=== PATIENT | female | born 2000 | race Caucasian/White ===

== ENCOUNTER 2023-10-24 10:29 | Outpatient (CLI) | payer MEDICAID, SELFPAY ==
[2023-10-24 16:44] LABS: Basophils # 0.1 K/mm3 (0-0.2); Basophils % 0.8 % (0.1-2.0); Eosinophils # 0.1 K/mm3 (0.0-0.4); Eosinophils % 1.8 % (0.1-12.0); Hematocrit 44.2 % (37.0-47.0); Hemoglobin 14.2 g/dL (12.2-16.2); Lymphocytes # 2.2 K/mm3 (0.7-4.5); Lymphocytes % 31.7 % (10-50); Mean Corpuscular Hemoglobin 27.5 pg (27.0-31.2); Mean Corpuscular Volume 85.8 fl (81-99); Mean Platelet Volume 8.7 fl (7.4-10.4); Monocytes # 0.4 K/mm3 (0.1-1.0); Monocytes % 5.1 % (1.7-9.3); Neutrophils # 4.3 K/mm3 (1.8-7.8); Neutrophils % 60.6 % (37.0-80.0); Platelet Count 249 K/mm3 (142-424); Red Blood Count 5.16 M/mm3 (4.20-5.40); Red Cell Distribution Width 13.8 % (11.5-17.5); White Blood Count 7.1 K/mm3 (4.8-10.8)
[2023-10-24 16:54] LABS: Alanine Aminotransferase 20 U/L (12-78); Albumin Level 4.3 g/dl (3.5-5.0); Albumin/Globulin Ratio 1.5 (1.1-1.8); Alkaline Phosphatase 60 U/L (38-126); Anion Gap 15.9 mEq/L (5-15); Aspartate Amino Transferase 22 U/L (14-36); Bilirubin,Total 0.2 mg/dl (0.2-1.3); Blood Urea Nitrogen 18 mg/dl (7-17); Calcium 9.3 mg/dl (8.4-10.2); Carbon Dioxide 27 mmol/L (22.0-30.0); Chloride 102 mmol/L (98-107); Chol/HDL Ratio 5.7 (1-3.5); Cholesterol 193 mg/dl (140-200); Estimated Glomerular Filt Rate 156 ml/min (>60); GFR (African American) 188 ML/MIN (>60); Globulin 2.9 g/dL (1.3-3.2); Glucose 231 mg/dl (74-100); HDL Cholesterol 34 mg/dl (40-60); Potassium 4.9 mmoL/L (3.5-5.1); Sodium 140 mmol/L (136-145); Total Protein,Serum 7.2 g/dl (6.3-8.2); Triglycerides 86 mg/dl (30-150); VLDL Cholesterol 17 mg/dL (0-40)
[2023-10-24 17:05] LABS: Direct LDL Cholesterol 131.96 mg/dL (100-129)
[2023-10-24 17:09] LABS: Free Thyroxine Index 2.3 ug/dL (5.93-13.13); T4 (Thyroxine) 7.1 ug/dl (5.53-11.0); Triiodothryronine (T3) Uptake 32 % (23.5-40.5)
[2023-10-24 17:22] LABS: Hemoglobin A1C 8.2 % (4.0-6.0)
[2023-10-24 17:23] LABS: Thyroid Stimulating Hormone 0.94 uIU/mL (0.465-4.68)
== END 2023-10-24 23:59 | disposition home or self-care (01) ==
LOC: LAB.DROPOF 10-26 10:30
PROVIDERS: PCP Nurse Practitioner Family; Visit Provider Nurse Practitioner Family
DX: E11.9 Type 2 diabetes mellitus without complications (principal); Z79.4 Long term (current) use of insulin
CPT/HCPCS: 80053; 80061; 83036; 84436; 84443; 84479; 85025

== ENCOUNTER 2023-11-11 14:40 | Outpatient (CLI) | payer MEDICAID, SELFPAY ==
--- NOTE | 2023-11-11 14:41 | XR_ITS ---
FINAL REPORT CLINICAL HISTORY: cyst FINDINGS: LEFT KNEE 3 views of the left knee were obtained. There is no acute fracture or dislocation. Visualized joint spaces are normally aligned. Soft tissues are unremarkable. IMPRESSION: No acute bony abnormality. Reviewed, Interpreted and Dictated by Arthur Gibbs MD Transcribed by Bernie Del Real Authenticated and [facility]
--- NOTE | 2023-11-11 14:41 | US_ITS ---
FINAL REPORT TECHNIQUE: Limited sonographic imaging was obtained of the left knee. CLINICAL HISTORY: skin cyst FINDINGS: There is a hypoechoic lesion in the prepatellar region measuring 14 x 12 x 6 mm likely related to complex cyst or hematoma. IMPRESSION: Nonspecific, subcutaneous nodule in the prepatellar region. Reviewed, Interpreted and Dictated by Arthur Gibbs MD Transcribed by Bernie Del Real Authenticated and [facility]
== END 2023-11-11 23:59 | disposition home or self-care (01) ==
LOC: RAD 14:41
PROVIDERS: PCP Surgery; Visit Provider Surgery
DX: L72.9 Follicular cyst of the skin and subcutaneous tissue, unspecified (principal)
CPT/HCPCS: 73562; 76882

== ENCOUNTER 2023-12-01 08:22 | Outpatient (CLI) | payer MEDICAID, SELFPAY ==
--- NOTE | 2023-12-01 08:32 | MR_ITS ---
FINAL REPORT CLINICAL HISTORY: LT Knee Pain. patellar cyst. FINDINGS: Multiplanar MR imaging of the left knee was performed without contrast. There is a lobular cyst adjacent to the anterior horn and body of the lateral meniscus measuring 3.4 x 2.1 x 1.0 cm, may represent a meniscal cyst, ganglion cyst, or parameniscal cyst. No definitive lateral meniscal tear is identified. The medial meniscus is intact. The anterior and posterior cruciate ligaments are intact. The medial collateral ligament and lateral ligamentous complex are intact. There is mild distal patellar tendinitis. There is no evidence of fracture. No focal abnormality is identified of the articular cartilage. Small joint effusion is seen. The musculature is intact. IMPRESSION: Lobular cyst adjacent to the lateral meniscus as detailed above. Mild distal patellar tendinitis. Reviewed, Interpreted and Dictated by Ramesh Jon III, MD Transcribed by Jordana Toribio Authenticated and [facility]
== END 2023-12-01 23:59 | disposition home or self-care (01) ==
LOC: RAD 08:23
PROVIDERS: PCP Nurse Practitioner Family; Visit Provider Orthopaedic Surgery
DX: M25.562 Pain in left knee (principal); L72.9 Follicular cyst of the skin and subcutaneous tissue, unspecified; M76.52 Patellar tendinitis, left knee
CPT/HCPCS: 73721

== ENCOUNTER 2023-12-08 11:58 | Outpatient (CLI) | payer MEDICAID, SELFPAY ==
[2023-12-08 12:51] LABS: Basophils # 0.1 K/mm3 (0-0.2); Basophils % 1.3 % (0.1-2.0); Eosinophils # 0.1 K/mm3 (0.0-0.4); Eosinophils % 1.2 % (0.1-12.0); Hemoglobin 14.6 g/dL (12.2-16.2); Lymphocytes # 2.4 K/mm3 (0.7-4.5); Lymphocytes % 30.9 % (10-50); Mean Corpuscular Hemoglobin 28.1 pg (27.0-31.2); Mean Corpuscular Volume 82.5 fl (81-99); Mean Platelet Volume 7.6 fl (7.4-10.4); Monocytes # 0.4 K/mm3 (0.1-1.0); Monocytes % 4.8 % (1.7-9.3); Neutrophils # 4.8 K/mm3 (1.8-7.8); Neutrophils % 61.9 % (37.0-80.0); Platelet Count 202 K/mm3 (142-424); Red Blood Count 5.21 M/mm3 (4.20-5.40); White Blood Count 7.8 K/mm3 (4.8-10.8)
[2023-12-08 14:27] LABS: Alanine Aminotransferase 23 U/L (12-78); Albumin Level 4.9 g/dl (3.5-5.0); Albumin/Globulin Ratio 1.8 (1.1-1.8); Alkaline Phosphatase 60 U/L (38-126); Anion Gap 16.1 mEq/L (5-15); Aspartate Amino Transferase 24 U/L (14-36); Bilirubin,Total 0.4 mg/dl (0.2-1.3); Blood Urea Nitrogen 15 mg/dl (7-17); Calcium 9.8 mg/dl (8.4-10.2); Carbon Dioxide 25 mmol/L (22.0-30.0); Chloride 103 mmol/L (98-107); Estimated Glomerular Filt Rate 156 ml/min (>60); GFR (African American) 188 ML/MIN (>60); Globulin 2.7 g/dL (1.3-3.2); Glucose 190 mg/dl (74-100); Potassium 4.1 mmoL/L (3.5-5.1); Sodium 140 mmol/L (136-145); Total Protein,Serum 7.6 g/dl (6.3-8.2)
== END 2023-12-08 23:59 | disposition home or self-care (01) ==
LOC: LAB 11:59
PROVIDERS: PCP Nurse Practitioner Family; Visit Provider Surgery
DX: L72.9 Follicular cyst of the skin and subcutaneous tissue, unspecified (principal)
CPT/HCPCS: 36415; 80053; 85025

== ENCOUNTER 2023-12-14 06:02 | Day surgery (SDC) | payer MEDICAID, SELFPAY ==
[2023-12-12 13:19] VITALS: BMI 36.6
[2023-12-14] VITALS (10 sets, daily range): BP systolic 112–135; BP diastolic 54–82; PULSE 68–83; RESP 16–18; TEMP 36.1–36.2; O2SAT 95–100
[2023-12-14] MEDS: LACTATED RINGERS 1000ML 1,000 ML 100 ML IV (06:30)
[2023-12-14 07:17] LABS: POC Glucose,Bedside 150 (70-110)
[2023-12-14] MEDS: CEFAZOLIN SODIUM 2 GM in 0.9 % SODIUM CHLORIDE 100 ML IV (07:36)
[2023-12-14] MEDS: BUPIVACAINE 0.25% 30ML VIAL 75 MG (08:05)
[2023-12-14] MEDS: RINGERS SOLUTION,LACTATED 6,000 ML 25 ML IR (08:05)
--- NOTE | 2023-12-14 08:29 | P.OP_ITS ---
Date of procedure: 12/14/23 Pre-op Diagnosis:: Left knee soft tissue mass anterior knee Left knee parameniscal cyst Post-op Diagnosis:: Same Procedure performed:: 1. Left knee arthroscopy with synovectomy and debridement lateral parameniscal cyst 2. Left knee open excision soft tissue mass anterior knee Surgeon:: Krish Otero DO SENIOR [employer]YROLL SPECIALIST:: Keli Suarez Anesthesia: GETA Estimated blood loss (mL): 0 Operative findings:: Left knee parameniscal cyst and synovitis without evidence of meniscal tear Operative note:: Patient identified preoperatively. Left knee marked with yes and my initials. Transferred operative suite. Placed upon the operating bed. General anesthesia administered airway secured. Left knee was then prepped and draped within the knee rubio. Once prepped and draped final operative timeout performed to identify proper patient procedure and extremity. Everyone involved the case agreed. There was no counter indications to beginning. Did receive preoperative antibiotics. Marking pen was used to sandra the bony landmarks of the in the soft tissue mass of the anterior knee superficial to the patella tendon Esmarch was used to exsanguinate the extremity pneumatic tourniquet inflated to 300 mmHg. Skin knife was used incise standard anterior lateral portal and the blunt with trocar was placed in the patellofemoral joint exchange with a camera. I swept directly into the medial joint line where the anterior medial portal was made with the help of an 18-gauge spinal needle. Once this was established a probe was placed in the medial joint line the medial meniscus was intact medial cartilage is intact Tensions brought to the intercondylar notch there was some mild synovitis in the anterior compartment ACL was seen and intact. Attention is then brought to the lateral joint line within the lateral joint line probe was then placed there is synovitis also present in the lateral joint line. A probe was then placed in the undersurface of the lateral meniscus there is no alexandr tear of the lateral meniscus evident. Next probed this extensively. The sucker shaver was placed in the lateral joint line and placed on suction and the meniscal cyst was ruptured with return of fluid which was suctioned with the sucker shaver out of the knee. There is also significant synovitis present in the lateral joint line which was also debrided with the sucker shaver. Attention is brought to the medial lateral gutters no further pathology was seen there attention was brought to the patellofemoral joint patella tracked midline the trochlea no pathology seen. Cameras removed the joint was drained. Attention was then brought to the anterior aspect of the knee where there is a palpable soft tissue mass superficial to the patella. 15 blade was used to incise through skin careful dissection was taken down with scissors and retractors placed and soft tissue mass excised from the knee. This tissue passed off for pathology. Irrigation wound performed. Deep layers closed with Vicryl skin closed with nylon stitches sterile dressing placed from toe to thigh patient waken anesthesia taken recovery stable condition. Condition: stable Disposition: PACU Complications:: None apparent
[2023-12-14 08:36] LABS: Urine Pregnancy, HCG Qual. Negative (Negative)
--- NOTE | 2023-12-14 08:44 | EXP.ANES.I ---
[facility] Anesthesia Record Part I Anesthesia Record I Intake, IV Amount: 750 Hydration: Adequate Estimated blood loss (mL): 10 Urine output (mL): 0 Blood Products used (#): none Blood Pressure: 114/62 SaO2: 95 Pulse Rate: 70 Airway Patency: Patent Respiratory Rate: 16 Temperature: 96.9 F Patient is:: Awake, Drowsy, Oral/Nasal airway (9.0 oral airway) and Stable Stable to PACU at:: 08:45
[2023-12-14 08:50] LABS: POC Glucose,Bedside 150 (70-110)
--- NOTE | 2023-12-14 17:30 | EXP.ANES.II ---
[facility] Anesthesia Record Part II Anesthesia Record Part II Discharge Time: 09:10 Destination: Surgical Day Care (OP Surgery) PACU nurse assessment reviewed?: Yes Patient Condition:: Good Anesthesia Complications:: None Swallowing reflex intact?: Yes Airway Patency: Patent Cyanosis?: No Blood Pressure: 127/75 SaO2: 96 Respiratory Rate: 16 Pulse Rate: 83 Temperature: 96.9 F Mental Status: Alert & Oriented Pain level:: 0 Nausea and/or vomitting:: None Intake, IV Amount: 750 Hydration: Adequate
== END 2023-12-14 09:41 | disposition home or self-care (01) ==
PROVIDERS: PCP Nurse Practitioner Family; Visit Provider Orthopaedic Surgery
PROC: (CPT 29870; principal; 2023-12-14 07:30)
DX: M23.001 Cystic meniscus, unspecified lateral meniscus, left knee (principal); D23.72 Other benign neoplasm of skin of left lower limb, including hip
CPT/HCPCS: 11402; 29875; 81025; 82962; 96374; J0690; J1885; J2250; J2405; J3010; J7120

== ENCOUNTER 2024-03-30 15:10 | Outpatient (CLI) | payer MEDICAID, SELFPAY ==
[2024-03-30 16:17] LABS: Basophils # 0.1 K/mm3 (0-0.2); Basophils % 0.8 % (0.1-2.0); Eosinophils # 0.1 K/mm3 (0.0-0.4); Hematocrit 42.8 % (37.0-47.0); Lymphocytes # 1.3 K/mm3 (0.7-4.5); Lymphocytes % 17.8 % (10-50); Mean Corpuscular Hemoglobin 28.9 pg (27.0-31.2); Mean Corpuscular Volume 82.4 fl (81-99); Mean Platelet Volume 7.7 fl (7.4-10.4); Monocytes # 0.4 K/mm3 (0.1-1.0); Monocytes % 4.8 % (1.7-9.3); Neutrophils # 5.5 K/mm3 (1.8-7.8); Neutrophils % 75.5 % (37.0-80.0); Platelet Count 205 K/mm3 (142-424); White Blood Count 7.3 K/mm3 (4.8-10.8)
[2024-03-30 16:45] LABS: Albumin Level 4.7 g/dl (3.5-5.0); Chloride 104 mmol/L (98-107); Sodium 138 mmol/L (136-145)
[2024-03-30 16:46] LABS: Potassium 4.3 mmoL/L (3.5-5.1)
[2024-03-30 16:48] LABS: Alanine Aminotransferase 655 U/L (12-78); Albumin/Globulin Ratio 1.6 (1.1-1.8); Alkaline Phosphatase 240 U/L (38-126); Amylase 49 U/L (30-110); Anion Gap 13.3 mEq/L (5-15); Aspartate Amino Transferase 249 U/L (14-36); Bilirubin,Total 3.5 mg/dl (0.2-1.3); Blood Urea Nitrogen 9 mg/dl (7-17); Carbon Dioxide 25 mmol/L (22.0-30.0); Estimated Glomerular Filt Rate 156 ml/min (>60); GFR (African American) 188 ML/MIN (>60); Globulin 2.9 g/dL (1.3-3.2); Total Protein,Serum 7.6 g/dl (6.3-8.2)
[2024-03-30 16:49] LABS: Calcium 9.3 mg/dl (8.4-10.2); Chol/HDL Ratio 4.2 (1-3.5); Cholesterol 215 mg/dl (140-200); Glucose 267 mg/dl (74-100); HDL Cholesterol 51 mg/dl (40-60); Triglycerides 85 mg/dl (30-150); VLDL Cholesterol 17 mg/dL (0-40)
[2024-03-30 17:00] LABS: Direct LDL Cholesterol 131.65 mg/dL (100-129)
[2024-03-30 17:11] LABS: HIV (1&2) Antibody Rapid NONREACTIVE (NONREACTIVE)
[2024-03-31 05:13] LABS: HCV Ab Non Reactive (Non Reactive)
== END 2024-03-30 23:59 | disposition home or self-care (01) ==
LOC: LAB.DROPOF 03-31 09:06
PROVIDERS: PCP Family Medicine; Visit Provider Family Medicine
DX: R10.9 Unspecified abdominal pain (principal); Z11.4 Encounter for screening for human immunodeficiency virus [HIV]; Z11.59 Encounter for screening for other viral diseases; E11.9 Type 2 diabetes mellitus without complications
CPT/HCPCS: 80053; 80061; 82150; 85025; 86803; 87389

== ENCOUNTER 2024-04-05 08:24 | Outpatient (CLI) | payer MEDICAID, SELFPAY ==
--- NOTE | 2024-04-05 08:24 | US_ITS ---
FINAL REPORT CLINICAL HISTORY: EPIGASTRIC PAIN-- COMPARISON: None FINDINGS: Sonographic images of the abdomen were obtained. The liver has an unremarkable appearance with normal echogenicity. There is a large shadowing area in the gallbladder fossa which likely represents a stone filled gallbladder. There is no evidence of biliary ductal dilatation. The common hepatic duct measures 4 mm, which is within normal limits. The pancreas is partially obscured. The spleen size is normal. The right kidney measures 10.3 cm in length. The left kidney measures 10.6 cm in length. There is normal renal echogenicity. There is no evidence of hydronephrosis. The aorta has an unremarkable appearance. Limited images of the inferior vena cava are unremarkable. IMPRESSION: Probable stone filled gallbladder. Reviewed, Interpreted and Dictated by Ramesh Jon III, MD Transcribed by Little Villanueva Authenticated and . [facility]
== END 2024-04-05 23:59 | disposition home or self-care (01) ==
LOC: RAD 08:24
PROVIDERS: PCP Family Medicine; Visit Provider Family Medicine
DX: R10.9 Unspecified abdominal pain (principal)
CPT/HCPCS: 76700

== ENCOUNTER 2024-04-18 10:08 | Outpatient (CLI) | payer MEDICAID, SELFPAY ==
[2024-04-18 11:24] LABS: Urine Pregnancy, HCG Qual. Negative (Negative)
[2024-04-18 11:39] LABS: Albumin Level 4.5 g/dl (3.5-5.0)
[2024-04-18 11:42] LABS: Alanine Aminotransferase 51 U/L (12-78); Aspartate Amino Transferase 27 U/L (14-36); Bilirubin,Unconjugated 0.2 mg/dL (0.0-1.1); Total Protein,Serum 6.7 g/dl (6.3-8.2)
[2024-04-18 11:43] LABS: Alkaline Phosphatase 75 U/L (38-126); Bilirubin,Direct 0.2 mg/dl (0.0-0.4); Bilirubin,Indirect 0.1 mg/dL (0.0-0.9); Bilirubin,Total 0.3 mg/dl (0.2-1.3)
== END 2024-04-18 23:59 | disposition home or self-care (01) ==
PROVIDERS: PCP Nurse Practitioner Family; Visit Provider Surgery
DX: K82.8 Other specified diseases of gallbladder (principal)
CPT/HCPCS: 36415; 80076; 81025

== ENCOUNTER 2024-04-26 06:03 | Day surgery (SDC) | payer MEDICAID, SELFPAY ==
[2024-04-24 12:52] VITALS: BMI 36.6
[2024-04-26] VITALS (11 sets, daily range): BP systolic 119–146; BP diastolic 67–92; PULSE 83–103; RESP 16–26; TEMP 36.3–43; O2SAT 97–99
[2024-04-26] MEDS: 0.9 % SODIUM CHLORIDE 1000ML 1,000 ML 25 ML IV (06:22)
[2024-04-26 06:33] LABS: Urine Pregnancy, HCG Qual. Negative (Negative)
[2024-04-26 06:46] LABS: POC Glucose,Bedside 224 (70-110)
--- NOTE | 2024-04-26 06:49 | P.PNANES_ITS ---
[facility] Disclaimer: The information contained in this section may have been updated after the patient was seen, as this information can be updated by other users. Medical History No significant family history Skin cyst Left knee Diabetes mellitus Surgical History History of dermoid cyst excision Family History Other Family history of cancer Family history of heart disease Family history of hypertension Social History (Updated 04/26/24 @ 06:29 by Grace Regan RN) Smoking Status: Current every day smoker second hand exposure: Yes alcohol intake: never substance use type: marijuana current occupational status: employed Travel in the last 8 weeks: None household members: significant other and children housing: apartment marital status: single [facility] Anesthesia Checklist Patient Identification Patient Identification: Arm Band and Family Structural Data Admitted From: Home Planned Operative Procedure/s: Lap Raegan Consent for Planned Operative Procedure(s) Verified: Yes NPO Status Verified Time NPO: 00:00 Additional verifications Patient : No Anesthesia Reactions: No Hx Blood Transfusions: No Blood Transfusion Reaction: No Cephalosporin Allergy: No Previous Colonoscopy: No Airway Assessment Mallampati Score:: Class III C-Spine Mobility Assessed: Yes TMJ Mobility Assessed: Yes Dentition: Good Dentition Neurological Assessment Level of Consciousness: Awake, Alert, Appropriate and Follows Commands Hx Seizures: No Numbness or tingling in extremities: No Anesthesia Plan Anesthesia Risk discussed: Yes ASA Class: II Anesthesia Type: General Preoperative Comments Pre-Operative Comments: NIDDM. Smokes MJ.
[2024-04-26 07:02] LABS: Albumin Level 4.2 g/dl (3.5-5.0)
[2024-04-26 07:05] LABS: Alanine Aminotransferase 74 U/L (12-78); Alkaline Phosphatase 96 U/L (38-126); Aspartate Amino Transferase 52 U/L (14-36); Bilirubin,Direct 0.3 mg/dl (0.0-0.4); Bilirubin,Total 0.3 mg/dl (0.2-1.3); Total Protein,Serum 6.5 g/dl (6.3-8.2)
[2024-04-26] MEDS: CEFAZOLIN SODIUM 2 GM in 0.9 % SODIUM CHLORIDE 100 ML IV (07:05)
[2024-04-26] MEDS: LIDOCAINE 1% 20ML MDV 20 ML (07:30)
--- NOTE | 2024-04-26 08:10 | P.OP_ITS ---
Date of procedure: 04/26/24 Pre-op Diagnosis:: Symptomatic cholelithiasis Abnormal liver function studies (resolved) Post-op Diagnosis:: Same Procedure performed:: Laparoscopic cholecystectomy Surgeon:: Michael Kingsley MD ELECTRICAL MAINTENANCE WORKER:: Giovani Christensen Anesthesia: GETA Estimated blood loss (mL): 15 Operative findings:: Infundibular thickening/soft tissue stranding Operative note:: After informed consent was obtained, the patient was taken to the operating room and placed in the supine position. General anesthesia was induced and the abdomen was prepped and draped in a sterile fashion. After infiltration with local anesthetic an infraumbilical incision was made. A Veress needle was placed in position. The abdomen was insufflated. A 5 mm optical trocar was placed in position. Under direct visualization, a 12 mm trocar was placed in the subxiphoid position and 2 additional 5 mm trocars were placed in the right upper quadrant. The gallbladder was elevated up and over the liver margin. The tissue around the cystic duct was carefully dissected. 3 clips were placed proximally and the duct was transected with harmonic emilee. Harmonic emilee were then utilized to dissect the gallbladder away from the liver margin with careful attention to the control of the cystic artery. The gallbladder was placed in a retrieval bag and removed through the subxiphoid trocar site. The right upper quadrant was thoroughly irrigated. No active bleeding or bile leak was noted. Fascia at the subxiphoid trocar site was reapproximated utilizing the NeoClose device. The remaining trocars were removed. All wounds were i rrigated and skin was closed with 4-0 Monocryl in a subcuticular fashion. Steri-Strips were applied. The patient's anesthetic agents were reversed and extubation was completed prior to transfer to recovery in stable condition. Condition: stable Disposition: PACU Specimens:: Gallbladder and contents Complications:: No immediate
[2024-04-26] MEDS: HYDROMORPHONE 2MG/ML SYRINGE 0.5 MG IV ×4 (08:22→08:37)
[2024-04-26 08:27] LABS: POC Glucose,Bedside 219 (70-110)
--- NOTE | 2024-04-26 08:28 | P.PNANES_ITS ---
[facility] Anesthesia Record Part I Anesthesia Record I Intake, IV Amount: 850 Hydration: Adequate Estimated blood loss (mL): 15 Urine output (mL): 0 Blood Products used (#): none Blood Pressure: 146/92 SaO2: 98 Pulse Rate: 103 Airway Patency: Patent Respiratory Rate: 26 Temperature: 97.3 F Patient is:: Drowsy and Stable Stable to PACU at:: 08:17
--- NOTE | 2024-04-26 12:58 | P.PNANES_ITS ---
[facility] Anesthesia Record Part II Anesthesia Record Part II Discharge Time: 08:47 Destination: Surgical Day Care (OP Surgery) PACU nurse assessment reviewed?: Yes Patient Condition:: Good Anesthesia Complications:: None Swallowing reflex intact?: Yes Airway Patency: Patent Cyanosis?: No Blood Pressure: 119/72 SaO2: 98 Respiratory Rate: 20 Pulse Rate: 85 Temperature: 97.5 F Mental Status: Alert & Oriented Pain level:: 2 Nausea and/or vomitting:: None Intake, IV Amount: 0 Hydration: Adequate
== END 2024-04-26 09:17 | disposition home or self-care (01) ==
PROVIDERS: PCP Nurse Practitioner Family; Visit Provider Surgery
PROC: 0FT44ZZ Resection of Gallbladder, Percutaneous Endoscopic Approach (ICD-10-PCS; CPT 47562; principal; 2024-04-26 07:30)
DX: K80.20 Calculus of gallbladder without cholecystitis without obstruction (principal); R79.89 Other specified abnormal findings of blood chemistry
CPT/HCPCS: 47562; 36415; 80076; 81025; 82962; 96374; J3490; J0690; J1100; J1171; J2250; J2405; J3010; J7030

== ENCOUNTER 2024-08-21 08:03 | Emergency (ER) | payer MEDICAID, SELFPAY ==
[2024-08-21 08:13] LABS: Microscopic, Urine URINE MICROSCOPIC (MICROSCOPIC)
[2024-08-21 08:15] VITALS: BP 149/88; PULSE 86; RESP 18; TEMP 36.7; O2SAT 100; BMI 38.2
[2024-08-21 08:16] LABS: Appearance,Urine CLEAR (Clear); Bilirubin,Urine Negative (Negative); Blood, Urine Negative (Negative); Color,Urine YELLOW (Yellow); Glucose,Urine (UA) 3+ (Negative); Ketones,Urine Negative (Negative); Leukocyte Esterase,Urine Negative (Negative); Nitrate,Urine Negative (Negative); Protein,Urine Negative (Negative); Specific Gravity, Urine 1.015 (1.005-1.030); Urobilinogen,Urine 0.2 EU/dl (0.2)
--- NOTE | 2024-08-21 08:20 | PC.NURSE ---
dr taylor at bedside
[2024-08-21 08:25] LABS: Basophils # 0.1 K/mm3 (0-0.2); Basophils % 0.7 % (0.1-2.0); Eosinophils # 0.1 K/mm3 (0.0-0.4); Eosinophils % 1.5 % (0.1-12.0); Hematocrit 44.5 % (37.0-47.0); Lymphocytes # 1.9 K/mm3 (0.7-4.5); Lymphocytes % 26.1 % (10-50); Mean Corpuscular HGB Conc 33.7 g/dL (31.8-35.4); Mean Corpuscular Hemoglobin 27.9 pg (27.0-31.2); Mean Corpuscular Volume 82.9 fl (81-99); Mean Platelet Volume 11.1 fl (7.4-10.4); Monocytes # 0.4 K/mm3 (0.1-1.0); Monocytes % 5.1 % (1.7-9.3); Neutrophils # 4.8 K/mm3 (1.8-7.8); Neutrophils % 66.5 % (37.0-80.0); Platelet Count 164 K/mm3 (142-424); Red Blood Count 5.37 M/mm3 (4.20-5.40); Red Cell Distribution Width 12.5 % (11.5-17.5); White Blood Count 7.2 K/mm3 (4.8-10.8)
[2024-08-21 08:28] LABS: Lactate Venous 1.6 mmol/L (0.4-2.0); VBG Base Excess -1.7 mmol/L (-2.4-2.3); VBG HCO3 23.7 mmol/L (23-30); VBG Oxygen Saturation 74.7 % (50-70); VBG PCO2 43.3 mmol/L (35-51); VBG PH 7.36 mmol/L (7.31-7.41); VBG PO2 40.6 mmol/L (28-40); VBG Total CO2 25.1 mmol/L (23-27)
--- NOTE | 2024-08-21 08:31 | HMH.EDGENADL ---
Discharge Plan Disposition Patient Disposition: Home, Self-Care Prescriptions Prescriptions: New metoclopramide HCl [Reglan] 10 mg tablet 10 mg PO Q6H PRN (Reason: nausea and vomiting) Qty: 20 0RF esomeprazole magnesium 20 mg capsule,delayed release(DR/EC) 20 mg PO DAILY 56 Days Qty: 56 1RF No Action Jardiance 10 mg tablet 10 mg PO DAILY Qty: 30 2RF (DME) blood-glucose meter [Blood Glucose Monitoring] Kit See Rx Instructions .ROUTE .MEDSUPPLY Qty: 1 0RF Rx Instructions: As directed (DME) Blood Glucose Test Strip See Rx Instructions .ROUTE .MEDSUPPLY Qty: 100 1RF Rx Instructions: As directed (DME) Comfort EZ Lancets 23 gauge misc See Rx Instructions .Route Qty: 100 2RF Rx Instructions: As directed Referrals Follow up/Referrals: Sherry Welch APRN [Primary Care Provider] - See instructions Josue Velazquez II, MD [Staff Physician] - See instructions Activity Restrictions/Add. Instructions Additional Instructions/Restrictions: Call your family doctor to establish care for this visit to the emergency department and schedule follow-up within 48 hours to ensure improvement. If you have any worsening of your condition or any other concerning signs or symptoms, return to the emergency department or your primary care doctor for further evaluation. Acid medication (esomeprazole) before bed. Reglan every 6 hours as needed for nausea and vomiting. Call Dr. Velazquez's office for upper GI scope to further definitively diagnose and manage your upper abdomen burning. Avoid NSAID medications, carbonated beverages, caffeine, alcohol as much as possible. Clinical Impressions Clinical Impression: Gastritis Instructions Patient Instructions: DI for Acute Abdominal Pain Print Language Print Language: Faroese Discharge ED Provider: Julio Cesar Toro General Adult HPI General Chief complaint: Abdominal Pain Stated complaint: severe stomach pain Time Seen by Provider: 08/21/24 08:06 Mode of Arrival: Ambulatory Source of Information: Patient Description of Symptoms (Recalled from ER Triage Doc. by RN): Patient reports intense stomach pains, boating, and indigestion. States it has been going on for months but got worse this morning. History of Present Illness HPI narrative: Please note that above description of symptoms, in this electronic medical record under categorization of recalled from ER triage doctor by RN are reflective of an initial nursing assessment, however, is not reflective of my full history and physical exam that was personally taken and clarified. Consequentially, this preceding description of symptoms, which may include the patient's categorized chief complaint in the EMR, do not reflect my personal clinical impression, and the ultimate description of history of present illness and patient stated complaints should be deferred to this section of the note. Unless stated otherwise or congruent with this section of the note, additional signs, symptoms, or incongruence should be interpreted as inaccurate with my clinical impression. Related Data Previous Rx's ?Medication ?Instructions ?Recorded empagliflozin 10 mg tablet 10 mg PO DAILY #30 tabs 07/06/24 (Jardiance) blood sugar diagnostic (Blood #100 ea 07/13/24 Glucose Test strips) blood-glucose meter (Blood Glucose #1 ea 07/13/24 Monitoring kit) lancets 23 gauge (Comfort EZ #100 ea 07/13/24 Lancets) esomeprazole magnesium 20 mg 20 mg PO DAILY 8 weeks #56 caps 08/21/24 capsule,delayed release metoclopramide HCl 10 mg tablet 10 mg PO Q6H PRN nausea and 08/21/24 (Reglan) vomiting #20 tabs Allergies Allergy/AdvReac Type Severity Reaction Status Date / Time No Known Allergies Allergy Verified 07/04/24 10:01 [facility] Disclaimer: The information contained in this section may have been updated after the patient was seen, as this information can be updated by other users. Medical History No significant family history Skin cyst Left knee Diabetes mellitus Surgical History History of dermoid cyst excision Family History Other Family history of cancer Family history of heart disease Family history of hypertension Social History Smoking Status: Current every day smoker second hand exposure: Yes alcohol intake: never substance use type: marijuana current occupational status: employed Travel in the last 8 weeks: None household members: significant other and children housing: apartment marital status: single Have you lived/traveled outside US in past 30 days?: No Contact w/someone who lives/traveled outside US past 30 days?: No Exposure to someone with infectious disease in past 14 days?: No Do you have a fever (greater than 100.4 F or 38 C)?: No Have you tested positive for COVID-19: No Exposed to someone with COVID-19 in past 14 days?: No Do you have a sore throat?: No Do you have a cough?: No Do you have any weakness?: No Do you have any diarrhea?: No Are you experiencing any unusual bleeding?: No Do you have any muscle aches/pain?: No Do you have any abdominal pain?: Yes Are you experiencing loss of taste or smell?: No Other Medical History Have you received the Pneumonia Vaccine: No ROS Obtained: Yes All systems reviewed & no additional complaints except as documented Physical Exam General General appearance: alert, in no apparent distress and obese Head Head exam: atraumatic and normocephalic Eye Eye exam: Present normal appearance, PERRL and EOMI Neck Neck exam: Present normal inspection, full ROM and trachea midline Respiratory Respiratory exam: Absent respiratory distress, wheezes, stridor, accessory muscle use or prolonged expiratory phase Cardiovascular Cardiovascular exam: Present other (Pulses equal symmetric in upper and lower extremities) Abdominal Exam Abdominal exam: Present soft and tenderness; Absent distention, guarding, rebound, rigidity or pulsatile mass Abdominal tenderness: Present epigastrium and mild Extremities Exam Extremities exam: Absent edema Neurological Exam Neurological exam: Present alert, oriented X3 and CN II-XII intact; Absent motor sensory deficit Skin Skin exam: Present warm and dry; Absent diaphoresis or erythema Medical Decision Making Medical Records Medical records reviewed: Yes I reviewed the patient's medical records. Screening: Per USPSTF and CDC recommendations, given the prevalence of disease in our region, it is our hospital?s policy to screen for HIV and viral Hepatitis for all patients aged 18 and over and those with ongoing risk factors. Igor Inquiry Pt receiving controlled substance: No Igor was queried for this patient: No Vital Signs: 08/21/24 08:15 Temperature 98.0 F Temperature Source Oral Pulse Rate [Radial] 86 Respiratory Rate 18 Blood Pressure [Right Arm] 149/88 H Blood Pressure Mean [Right Arm] 108 Blood Pressure Source [Right Arm] Automatic Cuff Blood Pressure Position [Right Arm] Sitting 02 Sat by Pulse Oximetry 100 Oxygen Delivery Method Room Air Lab Data Lab Results 08/21/24 08:10: Urine Color Yellow, Urine Appearance Clear, Urine pH 7.0, Ur Specific [place] 1.015, Urine Protein Negative, Urine Glucose (UA) 3+, Urine Ketones Negative, Urine Blood Negative, Urine Nitrate Negative, Urine Bilirubin Negative, Urine Urobilinogen 0.2, Ur Leukocyte Esterase Negative, Urine RBC None, Urine WBC None, Ur Squamous Epith Cells Occasional, Urine Bacteria Trace 08/21/24 08:15: WBC 7.2, RBC 5.37, Hgb 15.0, Hct 44.5, MCV 82.9, MCH 27.9, MCHC 33.7, RDW 12.5, Plt Count 164, MPV 11.1 H, Neut % (Auto) 66.5, Lymph % (Auto) 26.1, Boyle % (Auto) 5.1, Eos % (Auto) 1.5, Baso % (Auto) 0.7, Neut # (Auto) 4.8, Lymph # (Auto) 1.9, Boyle # (Auto) 0.4, Eos # (Auto) 0.1, Baso # (Auto) 0.1, VBG pH 7.36, VBG pCO2 43.3, VBG pO2 40.6 H, VBG HCO3 23.7, VBG Total CO2 25.1, VBG O2 Saturation 74.7 H, VBG Base Excess -1.7, VBG Lactic Acid 1.6, Sodium 137, Potassium 4.3, Chloride 102, Carbon Dioxide 28, Anion Gap 11.3, BUN 13, Creatinine 0.50 L, Estimated Creat Clear 266, Estimated GFR 156, Est GFR ( Amer) 188, Glucose 264 H, Calcium 9.2, Total Bilirubin 0.3, AST 25, ALT 19, Alkaline Phosphatase 65, Total Protein 7.4, Albumin 4.8, Globulin 2.6, Albumin/Globulin Ratio 1.8, Lipase 73, HCG, Quant < 2 08/21/24 08:15 08/21/24 08:15 Orders (Tests/Meds): ED MEDICATIONS Generic Name Dose Route Start Last Admin Trade Name Freq PRN Reason Stop Dose Admin Sodium Chloride 8 ml 08/21/24 08:27 Sodium Chloride 0.9% 10ml Vial IV 09/20/24 08:26 NEEDED PRN dilute pepcid Sodium Chloride 10 ml 08/21/24 08:27 Sodium Chloride 0.9% 10ml Vial IV 09/20/24 08:26 NEEDED PRN dilute protonix Discontinued Medications Generic Name Dose Route Start Last Admin Trade Name Maverick PRN Reason Stop Dose Admin Famotidine 20 mg 08/21/24 08:39 08/21/24 08:47 Famotidine 20mg Tablet PO 08/21/24 08:40 20 mg ONCE ONE Administration Metoclopramide HCl 10 mg 08/21/24 08:39 08/21/24 08:47 Metoclopramide 10mg Tablet PO 08/21/24 08:40 10 mg ONCE ONE Administration Pantoprazole Sodium 40 mg 08/21/24 08:39 08/21/24 08:47 Pantoprazole 40mg Tablet PO 08/21/24 08:40 40 mg ONCE ONE Administration ORDERS Category Date Time Status CBC w/Auto Diff [Complete Blood Count Auto Diff] Stat Lab 08/21/24 08:15 Completed CMP [Comprehensive Metabolic Panel] Stat Lab 08/21/24 08:15 Completed HCG,Quantitative Stat Lab 08/21/24 08:15 Completed Lipase Stat Lab 08/21/24 08:15 Completed UA [Urinalysis and Microscopic] Stat Lab 08/21/24 08:10 Completed VBG [Venous Blood Gas] Stat RT 08/21/24 08:15 Completed Medical Decision Narrative: 23yo F history of T2DM and ccy presenting with vomiting. Patient last used THC this morning, 08/21. States that she has a stabbing epigastric pain that does not radiate associated with retching, no vomiting. No diarrhea, fevers, chills, vaginal discharge or bleeding. Patient states it feels like her gallbladder before she had her gallbladder removed. No other associated history. Has not taken anything for the pain. History was obtained via conversation with patient. It should be noted that patient has history of THC use and potential THC induced vomiting syndrome which is likely complicating care. On arrival, patient hemodynamically stable, alert, oriented x4, appropriate, GCS 15, moving all extremities spontaneously, pupils equal and reactive to light. Full physical exam performed and significant for obese, but well-appearing female no acute distress. Abdomen is soft, minimally tender in epigastrium, no rebound, rigidity or guarding. No overlying skin changes. Patient speaking in full sentences. She is mildly hypertensive, but nontachycardic. Cardiopulmonary exam normal otherwise. Differential includes PUD, gastritis, enteritis, gastroenteritis, pancreatitis, SBO, colitis, diverticulitis, nephrolithiasis, UTI, , less likely appendicitis, hepatitis, torsion, aortic pathology, mesenteric ischemia among others. Patient placed on continuous cardiac monitoring and continuous pulse ox with initial blood pressure 149/88, heart rate 86, saturation 100% on room air. Patient was given Pepcid, Protonix, Reglan for symptomatic management and correction of underlying abnormalities. Patient refusing IV, so butterfly needle used and all meds were changed to p.o. Workup independently interpreted and significant for no leukocytosis, nonactionable CBC, chemistry, gas, with negative lipase and . Urinalysis nonactionable. CT imaging was considered, but conversation had with patient regarding utility. She has normal labs, normal abdominal exam, significant pain reduction on reevaluation just with oral medications and conservative management, ultimately CT was opted out of after shared decision making although it was considered. Given patient presentation, workup, history, this most likely represents gastritis versus peptic ulcer disease. Further conversation reveals that patient uses near daily ibuprofen, as well as daily caffeine and frequent energy drinks/carbonated beverages. Denies large-volume alcohol use. Because patient at baseline without signs or symptoms of clinical decompensation, deemed appropriate for discharge. Results were relayed to patient who voiced understanding and were agreeable to outpatient management and follow up. I discussed my clinical impression with patient and answered all questions. At this time, the evidence for any other entities in the differential is insufficient to warrant any further testing or ED observation. This was explained as well. Advisory was given that persistent or worsening symptoms require further evaluation. I confirmed the understanding of this discussion. [employer] disclaimer Much of this encounter note is an electronic overnight cashier spoken language to printed text. Electronic overnight cashier of the spoken language may permit errors. Although I have reviewed the note, some errors may still exist. Critical Care Critical Care Time Critical Care Time: No
[2024-08-21 08:32] LABS: Albumin Level 4.8 g/dl (3.5-5.0); Chloride 102 mmol/L (98-107); Potassium 4.3 mmoL/L (3.5-5.1); Sodium 137 mmol/L (136-145)
[2024-08-21 08:35] LABS: Alanine Aminotransferase 19 U/L (12-78); Albumin/Globulin Ratio 1.8 (1.1-1.8); Alkaline Phosphatase 65 U/L (38-126); Anion Gap 11.3 mEq/L (5-15); Aspartate Amino Transferase 25 U/L (14-36); Bilirubin,Total 0.3 mg/dl (0.2-1.3); Blood Urea Nitrogen 13 mg/dl (7-17); Calcium 9.2 mg/dl (8.4-10.2); Carbon Dioxide 28 mmol/L (22.0-30.0); Creatinine Clearance Estimated 266 mL/min (50-200); Estimated Glomerular Filt Rate 156 ml/min (>60); GFR (African American) 188 ML/MIN (>60); Globulin 2.6 g/dL (1.3-3.2); Glucose 264 mg/dl (74-100); Lipase 73 U/L (23-300); Total Protein,Serum 7.4 g/dl (6.3-8.2)
[2024-08-21 08:38] LABS: Bacteria,Urine Trace /lpf; Squamous Epithelial Cell,Urine Occasional #/hpf (0-5)
[2024-08-21] MEDS: METOCLOPRAMIDE 10MG TABLET 10 MG PO (08:47)
[2024-08-21] MEDS: FAMOTIDINE 20MG TABLET 20 MG PO (08:47)
[2024-08-21] MEDS: PANTOPRAZOLE 40MG TABLET 40 MG PO (08:47)
[2024-08-21 08:53] LABS: HCG,Quantitative < 2 mIU/ml (0-5.42)
[2024-08-21 09:16] VITALS: BP 149/88; PULSE 86; RESP 18; TEMP 36.7; O2SAT 100
== END 2024-08-21 09:20 | disposition home or self-care (01) ==
PROVIDERS: Emergency Provider Emergency Medicine; PCP Nurse Practitioner Family
DX: K29.70 Gastritis, unspecified, without bleeding (principal)
CPT/HCPCS: 80053; 81001; 82803; 83690; 84702; 85025; 99284

== ENCOUNTER 2024-11-28 12:17 | Day surgery (SDC) | payer MEDICAID, SELFPAY ==
[2024-11-27 13:46] VITALS: BMI 36.9
[2024-11-28 13:14] VITALS: BP 136/65; PULSE 69; RESP 18; TEMP 37.1; O2SAT 98
[2024-11-28 13:24] LABS: Urine Pregnancy, HCG Qual. Negative (Negative)
--- NOTE | 2024-11-28 13:35 | EXP.HP ---
History of Present Illness *Admission Date: 11/28/24 *Reason for visit:: Epigastric abdominal pain/dyspepsia with nausea *History of present illness: Ms. Woods is a 24-year-old female who is here for diagnostic EGD secondary to epigastric abdominal pain/dyspepsia with nausea. The examination is deemed medically necessary for diagnostic EGD. The patient has been seen, interviewed and examined prior to the procedure by both myself and the anesthesia provider. [facility] Disclaimer: The information contained in this section may have been updated after the patient was seen, as this information can be updated by other users. Medical History (Updated 11/28/24 @ 14:38 by Josue Velazquez II, MD) No significant family history Skin cyst Diabetes mellitus Surgical History History of cholecystectomy History of dermoid cyst excision Family History Other Family history of cancer Family history of heart disease Family history of hypertension Social History Smoking Status: Current every day smoker second hand exposure: Yes alcohol intake: current alcohol intake frequency: holidays/special occasions only substance use type: marijuana current occupational status: employed Travel in the last 8 weeks?: None household members: significant other and children housing: apartment marital status: single Have you lived/traveled outside US in past 30 days?: No Contact w/someone who lives/traveled outside US past 30 days?: No Exposure to someone with infectious disease in past 14 days?: No Do you have a fever (greater than 100.4 F or 38 C)?: No Have you tested positive for COVID-19?: No Exposed to someone with COVID-19 in past 14 days?: No Do you have a sore throat?: No Do you have a cough?: No Do you have any weakness?: No Do you have any diarrhea?: No Are you experiencing any unusual bleeding?: No Do you have any muscle aches/pain?: No Do you have any abdominal pain?: No Are you experiencing loss of taste or smell?: No Other Medical History Have you received the Pneumonia Vaccine: No Review of Systems Review of Systems Review of systems (narrative): Negative *Cardiovascular Comments: Negative *Gastrointestinal Comments: Negative *Genitourinary Comments: Negative *Musculoskeletal Comments: Negative *Neurologic Comments: Negative Meds Home Medications and Allergies Home Medications ?Medication ?Instructions ?Recorded ?Confirmed ?Type blood sugar diagnostic (Blood #100 ea 07/13/24 11/27/24 Rx Glucose Test strips) blood-glucose meter (Blood Glucose #1 ea 07/13/24 11/27/24 Rx Monitoring kit) lancets 23 gauge (Comfort EZ #100 ea 07/13/24 11/27/24 Rx Lancets) metoclopramide HCl 10 mg tablet 10 mg PO Q6H PRN nausea and 08/21/24 11/28/24 Rx (Reglan) vomiting #20 tabs empagliflozin 25 mg tablet 25 mg PO DAILY #30 tabs 09/27/24 11/28/24 Rx (Jardiance) esomeprazole magnesium 20 mg 20 mg PO DAILY 60 days #60 caps 09/27/24 11/28/24 Rx capsule,delayed release New Prescriptions to Start Prescriptions: Allergies Allergy/AdvReac Type Severity Reaction Status Date / Time No Known Allergies Allergy Verified 11/28/24 13:10 Exam Data for Last 24 hours Vital signs and Labs for Last 24 Hours: Laboratory Results - last 24 hr 11/28/24 13:04: Urine HCG, Qual Negative I & O for Last 24 hours: Intake & Output 11/25/24 11/26/24 11/27/24 11/28/24 23:59 23:59 23:59 23:59 Weight 202 lb *Routine HEENT Exam Head: Present normocephalic Eye: Present EOMI and PERRL ENT: Present mucous membranes moist *Routine Neck Exam Neck: Present supple *Routine Respiratory Exam Respiratory: Present CTA bilaterally *Routine Cardiovascular Exam Cardiovascular: Present RRR *Routine Abdominal Exam Abdominal: Present soft and normoactive bowel sounds; Absent tenderness *Routine Rectal Exam Rectal:: deferred *Routine Genitalia Exam Genitalia:: deferred *Routine Extremities Exam Extremities: Absent cyanosis, clubbing or edema *Routine Skin Exam Skin: Present warm; Absent rash *Routine Neurological Exam Neurological: Present alert and oriented X3 Assessment and Plan *Assessment and plan (1) Epigastric pain: Status: Acute Category: Medical Code(s): R10.13 - Epigastric pain (2) Nausea: Status: Acute Category: Medical Code(s): R11.0 - Nausea (3) Dyspepsia: Status: Acute Category: Medical Code(s): R10.13 - Epigastric pain (4) Globus sensation: Status: Acute Category: Medical Code(s): R09.A2 - Foreign body sensation, throat (5) Irritable bowel syndrome with diarrhea: Status: Acute Category: Medical Code(s): K58.0 - Irritable bowel syndrome with diarrhea Plan A/P: 1. Dyspepsia/epigastric abdominal pain with nausea is the preprocedural diagnosis. The patient will be anesthetized/sedated using MAC sedation. The patient has been seen and examined. Cardiac and lung assessment prior to the examination is stable. Proceed with planned diagnostic EGD.
[2024-11-28 13:49] LABS: POC Glucose,Bedside 122 (70-110)
[2024-11-28] MEDS: LACTATED RINGERS 1000ML 1,000 ML 50 ML IV (13:52)
--- NOTE | 2024-11-28 14:07 | P.PNANES_ITS ---
[facility] Disclaimer: The information contained in this section may have been updated after the patient was seen, as this information can be updated by other users. Medical History (Updated 11/28/24 @ 13:36 by Josue Velazquez II, MD) No significant family history Skin cyst Diabetes mellitus Surgical History History of cholecystectomy History of dermoid cyst excision Family History Other Family history of cancer Family history of heart disease Family history of hypertension Social History Smoking Status: Current every day smoker second hand exposure: Yes alcohol intake: current alcohol intake frequency: holidays/special occasions only substance use type: marijuana current occupational status: employed Travel in the last 8 weeks?: None household members: significant other and children housing: apartment marital status: single Have you lived/traveled outside [place] in past 30 days?: No Contact w/someone who lives/traveled outside US past 30 days?: No Exposure to someone with infectious disease in past 14 days?: No Do you have a fever (greater than 100.4 F or 38 C)?: No Have you tested positive for COVID-19?: No Exposed to someone with COVID-19 in past 14 days?: No Do you have a sore throat?: No Do you have a cough?: No Do you have any weakness?: No Do you have any diarrhea?: No Are you experiencing any unusual bleeding?: No Do you have any muscle aches/pain?: No Do you have any abdominal pain?: No Are you experiencing loss of taste or smell?: No [facility] Anesthesia Checklist Patient Identification Patient Identification: Arm Band Structural Data Admitted From: Home Planned Operative Procedure/s: EGD Consent for Planned Operative Procedure(s) Verified: Yes Verified Documents: Surgical Consent and History and Physical NPO Status Verified Time NPO: 00:00 Additional verifications Anesthesia Reactions: No Hx Blood Transfusions: No Blood Transfusion Reaction: No Airway Assessment Mallampati Score:: Class II C-Spine Mobility Assessed: Yes TMJ Mobility Assessed: Yes Dentition: Good Dentition Neurological Assessment Level of Consciousness: Awake, Alert and Appropriate Anesthesia Plan Anesthesia Risk discussed: Yes Anesthesia Plan: Verified ASA Class: II Anesthesia Type: MAC
--- NOTE | 2024-11-28 14:38 | HMH.PROCNOTE ---
[facility] Procedure Note Date: 11/28/24 Time: 14:49 Procedure Note:: Upper Endoscopy Procedure Report: Esophagogastroduodenoscopy with cold biopsies and TTS balloon dilation Endoscopost: Josue Velazquez II, MD Referring Physician: Sherry Santiago Date of Procedure: November 28, 2024 Equipment: Olympus GIF 190 standard upper endoscope Sedation: MAC sedation Indications: Ms. Woods is a 24-year-old female who is here for diagnostic upper endoscopy secondary to epigastric abdominal pain/dyspepsia and nausea. The patient does report postprandial nausea and a burning sensation in the mid upper abdomen after meals. She also gets some globus sensation with a feeling of something stuck in her throat after her meals. She reports a lot of bloating and gassiness but no belching. She also has chronic diarrhea predominant irritable bowel syndrome. She reports no dysphagia or early satiety. She will get brief spells of hiccups when this occurs. She does get heartburn and reflux. The patient has been on esomeprazole and metoclopramide. She did not have much improvement with PPI therapy but did get some minor improvement with the metoclopramide. The patient does use cannabis regularly. Procedure: Prior to the procedure, a history and physical exam was performed, and patient's medications and allergies were reviewed. The risks, benefits and alternatives of the sedation and procedure were discussed with the patient. All questions were answered and informed consent was obtained. The patient was brought to the procedure room. Patient identification and proposed procedure were verified by the physician and the nurse. The patient was placed in a left lateral decubitus position and the scope was passed under direct vision. Throughout the procedure, the patient's blood pressure, pulse, and oxygen saturations were monitored continuously. The upper GI endoscopy was accomplished without difficulty. The patient tolerated the procedure well. Findings: The scope was passed directly into the upper esophagus and advanced to the fourth portion of the duodenum. A cold biopsy was taken from the third portion of the duodenum for the disaccharidase assay. The post bulbar duodenum and duodenal bulb were normal with normal mucosa and conniventes. The scope was withdrawn through a normal duodenal bulb and pylorus into the stomach. There was moderate linear reactive gastropathy of the antrum and body of the stomach with bile reflux. There was also a lot of retained semisolid food residue in the body and fundus of the stomach suggestive of gastric dysmotility. Upon retroflexion there was a very small sliding 1 to 2 cm hiatal hernia. Cold biopsies were taken from the antrum of the stomach to rule out H. pylori. The scope was then withdrawn into the esophagus. There was no evidence of reflux or Alonzo's. There were stronger tertiary contractions and evidence of moderate esophageal dysmotility. The remainder of the esophageal mucosa was normal. Impression: 1. Nonerosive GERD with moderate esophageal dysmotility and very small sliding 1 to 2 cm hiatal hernia 2. Retained semisolid gastric food content suggestive of gastric dysmotility 3. Bile reflux with moderate linear reactive gastropathy Plan: I will follow-up the biopsies and disaccharidase assay. The patient does have functional dyspepsia and functional GERD and most of this related to and driven by lower intestinal gas pressure gradients/high gas pressure buildup resulting in backflow of bile and peptic fluid from the duodenum into the stomach (duodenal reflux). This gas production (carbon dioxide, hydrogen, methane, etc.) from the lower intestinal tract is the byproduct of colonic bacterial fermentation. This colonic fermentation occurs when there is more carbohydrate (dietary starches, sugars and high residue plant fiber) substrate that does not get digested (in the middle or small intestine) or occurs when there is colonic fecal buildup and colonic bacterial overgrowth. This indeed leads to bloating and the gas pressure buildup with gas pressure gradients that do drive backflow and dyspepsia. I am going to mention to the patient the possibility of early cannabinoid hyperemesis syndrome. I would recommend presently curbing use of cannabis, regularly taking promotility (metoclopramide before meals and bedtime) and initiation of neuromodulation (buspirone).
[2024-11-28 14:50] VITALS: BP 132/70; PULSE 96; RESP 16; TEMP 36.7; O2SAT 98
[2024-11-28 15:00] VITALS: BP 109/61; PULSE 78; RESP 16; O2SAT 99
[2024-11-28 15:10] VITALS: BP 116/58; PULSE 82; RESP 16; O2SAT 99
[2024-11-28 15:20] VITALS: BP 116/60; PULSE 68; RESP 16; TEMP 36.7; O2SAT 99
[2024-12-04 09:36] LABS: Interpretation Notes (.); Lactase 23.19 (>/= 14.0); Maltase 160.81 (>/= 110.0); Palatinase 9.39 (>/= 8.5); Reference Notes (.); Sucrase 35 (>/= 25.0)
== END 2024-11-28 15:35 | disposition home or self-care (01) ==
PROVIDERS: PCP Nurse Practitioner Family; Visit Provider Internal Medicine Gastroenterology
PROC: 0DJ08ZZ Inspection of Upper Intestinal Tract, Via Natural or Artificial Opening Endoscopic (ICD-10-PCS; CPT 43239; principal; 2024-11-28 14:00)
DX: K21.9 Gastro-esophageal reflux disease without esophagitis (principal); K58.0 Irritable bowel syndrome with diarrhea; K31.89 Other diseases of stomach and duodenum; E78.70 Disorder of bile acid and cholesterol metabolism, unspecified; K22.4 Dyskinesia of esophagus; K44.9 Diaphragmatic hernia without obstruction or gangrene; F17.200 Nicotine dependence, unspecified, uncomplicated; E11.9 Type 2 diabetes mellitus without complications; Z90.49 Acquired absence of other specified parts of digestive tract; Z79.899 Other long term (current) drug therapy; Z79.84 Long term (current) use of oral hypoglycemic drugs
CPT/HCPCS: 43239; 81025; 82657; 82962; J2003; J2704; J7120

== ENCOUNTER 2025-02-19 09:02 | Outpatient (CLI) | payer MEDICAID, SELFPAY ==
[2025-02-19 20:26] LABS: Hematocrit 48.1 % (37.0-47.0); Hemoglobin 15.1 g/dL (12.2-16.2); Immature Granulocytes % 0.2 %; Mean Corpuscular HGB Conc 31.4 g/dL (31.8-35.4); Mean Corpuscular Hemoglobin 26.5 pg (27.0-31.2); Mean Corpuscular Volume 84.4 fl (81-99); Nucleated Red Blood Cells % 0 %; Platelet Count 220 K/mm3 (142-424); Red Blood Count 5.70 M/mm3 (4.20-5.40); Red Cell Distribution Width-SD 46.0 fL; White Blood Count 9.7 K/mm3 (4.8-10.8)
[2025-02-19 20:55] LABS: Albumin Level 4.5 g/dl (3.5-5.0); Chloride 99 mmol/L (98-107); Sodium 139 mmol/L (136-145)
[2025-02-19 20:56] LABS: Potassium 4.0 mmoL/L (3.5-5.1)
[2025-02-19 20:58] LABS: Alanine Aminotransferase 15 U/L (12-78); Albumin/Globulin Ratio 1.5 (1.1-1.8); Alkaline Phosphatase 121 U/L (38-126); Anion Gap 22.0 mEq/L (5-15); Aspartate Amino Transferase 21 U/L (14-36); Bilirubin,Total 0.6 mg/dl (0.2-1.3); Carbon Dioxide 22 mmol/L (22.0-30.0); Globulin 3.0 g/dL (1.3-3.2); Total Protein,Serum 7.5 g/dl (6.3-8.2)
[2025-02-19 20:59] LABS: Calcium 9.5 mg/dl (8.4-10.2); Cholesterol 247 mg/dl (140-200); Glucose 199 mg/dl (74-100); HDL Cholesterol 37 mg/dl (40-60); Triglycerides 185 mg/dl (30-150)
[2025-02-19 21:21] LABS: Blood Urea Nitrogen 15 mg/dl (7-17); Creatinine,Serum 0.50 mg/dl (0.52-1.04); Estimated Glomerular Filt Rate 154 ml/min (>60); GFR (African American) 187 ML/MIN (>60)
[2025-02-19 21:30] LABS: Thyroid Stimulating Hormone 1.67 uIU/mL (0.465-4.68)
[2025-02-19 22:30] LABS: Hemoglobin A1C 8.3 % (4.0-6.0)
--- OUTSIDE RECORDS SUMMARY | 2025-02-20 08:52 | XMS_ITS | Patient Health Record ---
Author Organization [facility] [place] Address [address] [address] Care Team Providers Care Software Requirements Engineer Name Role Phone PRUDENCE DEL ROSARIO Unavailable [phone] Reason For Referral No Information Medications Medication SIG (Take, Route, Frequency, Duration) Notes Start Date End Date Status Dexcom G6 Transmitter - as directed; Dur ation: 30 days 08/11/2022 Active Pen [place] 32G X 6 MM as directed 5 ed es a day; Duration: 30 days Active Dexcom G6 Sensor - change every 10 days ; Duration: 30 days 08/11/2022 Active Lantus SoloStar 100 UNIT/ML 65 UNITS Subcutaneous ONCE A DAY; Duration: 30 days Active Lisinopril 2.5 MG 1 tablet Orally Once a day; Duration: 30 day(s) Active HumaLOG KwikPen 100 UNIT/ML 10 UNITS Subcutaneous 3 TIMES A DAY; Duration: 30 day Active Dexcom G6 Clinical Informatics Strategist - as directed; Durati on: 30 days 08/11/2022 Active Problems Problem Type SNOMED Code ICD Code Onset Dates Problem Status W/U Status Risk Notes Problem Hyperglycemia due to type 2 diabetes mellitus (305017632156660) Type 2 diabetes mellitus with hyperglycemia (E11.65) Active confirmed Problem Body mass index 40+ - severely obese (694885437) Body mass index (BMI) of 40.0-44.9 in adult (Z68.41) Active confirmed Plan Of Treatment Pending Test Test Name Order Date Vitamin B12 and Folate 08/11/2022 Hemoglobin A1c 08/11/2022 TSH 08/11/2022 CBC With Differential/Platelet 3 Vitamin D, 25-Hydroxy 08/11/2022 Insulin and C-Peptide, Serum 08/11/2022 Lipid Panel With LDL/HDL Ratio 3 Comp. Metabolic Panel (14) 08/11/2022 IAA+ANALIA 65 08/11/2022 Medical (General) History Medical History History ICD Code DIABETES Surgical History Surgery Date(Month/Year) CYST REMOVED
== END 2025-02-19 23:59 ==
LOC: LAB.DROPOF 02-20 08:50
PROVIDERS: PCP Nurse Practitioner Family; Visit Provider Nurse Practitioner Family
DX: E11.9 Type 2 diabetes mellitus without complications (principal)
CPT/HCPCS: 80053; 80061; 83036; 84443; 85025

== ENCOUNTER 2025-03-26 09:43 | Outpatient (CLI) | payer MEDICAID, SELFPAY ==
--- NOTE | 2025-03-26 09:47 | XR_ITS ---
FINAL REPORT CLINICAL HISTORY: right ankle pain - shielded for FINDINGS: RIGHT ANKLE 3 views of the right ankle were obtained. There is no acute fracture or dislocation. The mortise is intact. Visualized joint spaces are normally aligned. Soft tissues are unremarkable. IMPRESSION: No acute bony abnormality. Reviewed, Interpreted and Dictated by Ginna Aviles MD Transcribed by Bernie Del Real Authenticated and [facility]
--- OUTSIDE RECORDS SUMMARY | 2025-03-26 09:50 | XMS_ITS | Patient Health Record ---
Author Organization [facility] [place] Address [address] [place] [address] Care Team Providers Care Government Guard Name Role Phone PRUDENCE DEL ROSARIO Unavailable [phone] Reason For Referral No Information Medications Medication SIG (Take, Route, Frequency, Duration) Notes Start Date End Date Status Dexcom G6 Transmitter - as directed; Dur ation: 30 days 08/11/2022 Active Pen [place] 32G X 6 MM as directed 5 [...] DAY; Duration: 30 day Active Dexcom G6 Therapy Site Coordinator - as directed; Durati on: 30 days 08/11/2022 Active Problems Problem Type SNOMED Code ICD Code Onset Dates Problem Status W/U Status Risk Notes Problem Hyperglycemia due to type 2 diabetes mellitus ([id number]) Type 2 diabetes mellitus with hyperglycemia (E11.65) Active confirmed Problem Body mass index 40+ - severely obese (362571847) Body mass index (BMI) of 40.0-44.9 in [...]
== END 2025-03-26 23:59 | disposition home or self-care (01) ==
LOC: RAD 09:45
PROVIDERS: PCP Nurse Practitioner Family; Visit Provider Nurse Practitioner Family
DX: M25.571 Pain in right ankle and joints of right foot (principal)
CPT/HCPCS: 73610

== ENCOUNTER 2025-05-22 15:30 | Outpatient (RCR) | payer MEDICAID, SELFPAY | END 2025-05-22 23:59 | disposition home or self-care (01) | LOC: PT.CARL 15:30 | PROVIDERS: PCP Nurse Practitioner Family; Visit Provider Physician Assistant | DX: M25.571 Pain in right ankle and joints of right foot (principal) | CPT/HCPCS: 97110; 97161 ==